=== PATIENT | male | born 1970 | race Caucasian/White ===

== ENCOUNTER 2020-11-16 21:19 | Emergency (ER) | payer SELFPAY ==
--- NOTE | 2020-11-16 21:22 | NUR ---
NIL X1
--- NOTE | 2020-11-16 21:39 | NUR ---
NIL X2
--- NOTE | 2020-11-16 22:06 | NUR ---
NIL X3
== END 2020-11-16 22:08 | disposition left against medical advice (07) ==
LOC: ED 22:02
DX: M25.562 Pain in left knee (principal); R10.32 Left lower quadrant pain; Z53.21 Procedure and treatment not carried out due to patient leaving prior to being seen by health care provider

== ENCOUNTER 2020-11-18 18:22 | Emergency (ER) | payer MEDICAID ==
[~2020-11-18] VITALS: Ht 170.2 cm; Wt 71.0 kg
[2020-11-18 18:27] VITALS: BP 119/75
--- NOTE | 2020-11-18 18:51 | NUR ---
NILX 1
--- NOTE | 2020-11-18 19:16 | NUR ---
NILX2
--- NOTE | 2020-11-18 19:27 | NUR ---
NILX3
== END 2020-11-18 19:29 | disposition left against medical advice (07) ==
LOC: ED 19:00
DX: R53.1 Weakness (principal); Z53.21 Procedure and treatment not carried out due to patient leaving prior to being seen by health care provider